=== PATIENT | female | born 1990 | race Hispanic/Latino ===

== ENCOUNTER 2021-03-22 16:38 | Emergency (ER) | payer OTHER ==
[~2021-03-22] VITALS: Ht 167.6 cm; Wt 99.8 kg
[2021-03-22 16:40] VITALS: BP 145/76
[2021-03-22 17:10] LABS: APPEARANCE,URINE Clear (CLEAR); BILIRUBIN,URINE Negative (NEGATIVE); COLOR,URINE Yellow (YELLOW); GLUCOSE, URINE (UA) Negative (NEGATIVE); KETONES,URINE Trace mg/dL (NEGATIVE); LEUKOCYTE ESTERASE ,URINE Trace (NEGATIVE); NITRATE,URINE Negative (NEGATIVE); OCCULT BLOOD,URINE Negative (NEGATIVE); PH,URINE 5.5 (5.0-8.0); PROTEIN,URINE Trace mg/dL (NEGATIVE)
[2021-03-22 17:12] LABS: HCG,QUAL RESULT NEGATIVE (NEGATIVE)
[2021-03-22] MEDS ORDERED: DEXTROSE 50%-WATER 50 ML DISP.SYRIN IV ONE (17:16)
[2021-03-22 17:31] LABS: BACTERIA,URINE Few /HPF (None Seen); RBC,URINE 0-1 /HPF (0-1)
[2021-03-22 17:32] LABS: SQUAMOUS EPITHELIAL CELL,UR Rare /HPF (0-2)
[2021-03-22 17:33] LABS: BASOPHILS % (AUTO) 0.2 % (0.0-5.0); EOSINOPHILS % (AUTO) 0.9 % (0.0-8.0); HEMATOCRIT 43.7 % (36-48); LYMPHOCYTES % (AUTO) 21.4 % (21.0-51.0); MEAN CORPUSCULAR HEMOGLOBIN 29.7 pg (27.0-33.0); MEAN CORPUSCULAR HGB CONC 34.8 g/dL (32.0-36.0); MEAN CORPUSCULAR VOLUME 85.5 fL (79-99); MONOCYTES % (AUTO) 4.7 % (3.0-13.0); NEUTROPHILS % (AUTO) 72.5 % (40.0-77.0); PLATELET COUNT (AUTO) 240 K/uL (130-400); RED BLOOD CELL COUNT(AUTO) 5.11 MIL/uL (4.00-5.50); WHITE BLOOD COUNT (AUTO) 14.3 K/uL (4.8-10.8)
[2021-03-22 17:34] LABS: MUCUS,URINE Rare LPF (None Seen)
[2021-03-22 17:45] LABS: CREATININE 0.8 mg/dL (0.5-1.5); POTASSIUM 3.5 mmol/L (3.5-5.1)
[2021-03-22 17:49] LABS: ALBUMIN 3.9 g/dL (3.5-5.0); BILIRUBIN,TOTAL 0.4 mg/dL (0.2-1.0); CRP QUANTITATIVE 8.1 mg/L (0.00-9.0); TOTAL PROTEIN, SERUM 8.5 g/dL (6.0-8.3)
[2021-03-22] MEDS ORDERED: CEFTRIAXONE 1G VIAL IVP ONE (18:00)
[2021-03-22] MEDS ORDERED: CEPH500B PO (18:14)
[2021-03-22] MEDS ORDERED: FAMC500T8 PO (18:14)
[2021-03-22] MEDS ORDERED: FAMO-136 PO (18:14)
[2021-03-22] MEDS: LIDOCAINE HCL-MPF 1% 2ML VIAL ONE ×2 (18:27→18:39)
[2021-03-22] MEDS ORDERED: 0.9%NACL 50ML 50 ML IV ONE (18:33)
[2021-03-22 18:47] VITALS: BP 139/85
== END 2021-03-22 18:56 | disposition home or self-care (01) ==
LOC: EDH 16:38
DX: G51.0 Bell's palsy (principal); N39.0 Urinary tract infection, site not specified; E11.649 Type 2 diabetes mellitus with hypoglycemia without coma; E78.5 Hyperlipidemia, unspecified; E66.9 Obesity, unspecified; I10 Essential (primary) hypertension; Z79.84 Long term (current) use of oral hypoglycemic drugs; Z68.35 Body mass index [BMI] 35.0-35.9, adult
CPT/HCPCS: 36415; 70450; 71045; 80053; 81001; 81025; 82948; 84484; 85025; 86140; 96374; 96375; J0696; J3490; J7070

== ENCOUNTER 2025-03-05 11:28 | Emergency (ER) | payer OTHER ==
[~2025-03-05] VITALS: Ht 167.6 cm; Wt 79.8 kg
[~2025-03-05 11:28] MED LIST: CEPH500B PO; FAMC500T8 PO; FAMO-136 PO
--- NOTE | 2025-03-05 12:05 | ERN ---
ED Note History of Present Illness Stated Complaint: COUGH, SORE THROAT Chief Complaint: Sore Throat Time Seen by MD: 11:30 Time Seen by Midlevel: 11:30 Dictation: 34-year-old female who presents to the ED for URI symptoms. Patient complaining of cough, congestion, sore throat the past two days. Reports she is from out of town has not followed up with PCP. Denies chest pain, shortness of breath, abdominal pain, fever, chills. No sick contacts Allergies: Coded Allergies: No Known Allergies (Unverified Allergy, Unknown, 03/22/21) Home Meds Active Scripts Famciclovir (Famciclovir) 500 Mg Tablet, 500 MG PO TID for 7 Days, #21 TAB Prov:BRADLY REYNOLDS 03/22/21 Famotidine (Pepcid) 20 Mg Tablet, 20 MG PO BIDAC, #60 TAB Prov:BRADLY REYNOLDS 03/22/21 Cephalexin Monohydrate (Keflex) 500 Mg Cap, 500 MG PO TID for 7 Days, #21 CAP Prov:BRADLY REYNOLDS 03/22/21 Past Medical History Past Medical History: Diabetes-Type II, High Cholesterol, Hypertension Additional Past Medical Hx: Obesity Surgical History: Other Surgical History Other: HEART SURGERY RN Note Reviewed/Agreed w/PFSH: Yes Review of System Dictation Constitutional: Negative for fever,chills, and weight loss Eyes: Negative for injury, pain,redness, and discharge ENT: Negative for injury,pain or swelling Cardiovascular: Negative for chest pain, palpitations, and edema Respiratory: Negative for shortness of breath and wheezing, Abdomen/GI: Negative for abdominal pain, nausea, vomiting, diarrhea, and constipation Back: Negative for injury and pain : Negative for injury, bleeding and discharge MS/Extremity: Negative for injury and deformity Skin: Negative for rash, and discoloration Neuro: Negative for headache, weakness, numbness, tingling, and seizure Psych: Negative for suicide ideation, homicidal ideation, and hallucinations Review of Systems: was completed Initial Vital Sign VS Vital Signs Date Time Temp Pulse Resp B/P (MAP) Pulse Ox O2 Delivery O2 Flow Rate FiO2 03/05/25 11:30 98.2 84 18 133/85 99 03/05/25 11:37 Room Air* 0 21 Physical Exam Dictation General: awake, alert, NAD Head/Face: Normocephalic, atraumatic Eyes: PERRL, EOMI, vision at baseline ENT: oral cavity clear, TMs clear, no signs of infection Neck: Trachea midline, supple, no nuchal rigidity Cardiovascular: RRR, normal S1/S2, No MRGs, no JVD Respiratory: CTAB, no respiratory distress, No rales or wheezes Abdomen: Soft, non-tender, non-distended, normal bowel sounds, no guarding or rebound. Skin: Warm, dry, normal turgor, no rash MS/Extremity: Pulses equal, no cyanosis, neurovascular intact, FROM Neuro: COAx4, GCS 15, strength 5/5, CN 2-12 intact, normal cerebellar exam, normal gait, Psych: Normal behavior, mood, and affect normal Results (Laboratory/Radiology) Laboratory/Radiology Laboratory Tests Test 03/05/25 11:32 Influenza Type A Antigen Negative For Type A Influenza Type B Antigen Negative For Type B SARS-CoV-2 Antigen (Rapid) PRESUMPTIVE NEGATIVE Group A Streptococcus Rapid negative (NEGATIVE) Labs Reviewed?: Yes ED Course ED Course Orders Procedure Category Date Status Time Rapid (Group A Strep) LAB 03/05/25 Complete 11:31 Influenza Type A & B, LAB 03/05/25 Complete Rapid 11:42 Covid19 (Sars Antigen LAB 03/05/25 Complete Rapid) 11:42 Vital Signs Date Time Temp Pulse Resp B/P (MAP) Pulse Ox O2 Delivery O2 Flow Rate FiO2 03/05/25 11:37 98.1 80 16 132/82 99 Room Air* 0 21 03/05/25 11:30 98.2 84 18 133/85 99 Medical Decision Making MDM MDM: Differential diagnosis: Strep pharyngitis, COVID, influenza, viral URI Rationale: Tests considered and ordered secondary to shared decision making include: Previous outside records reviewed: Old ER visits. Medications-Per medication reconciliation Need for hospitalization: Patient does not meet criteria for hospitalization. Need for emergency major/minor surgery: No Patient's prior external medical records from other ER visits were reviewed by me as indicated. Prior testing and results from previous visits were reviewed. Prior tests were taken into account with medical decision making and resource utilization, independent historian/historians were used to obtain complete medical history. I independently interpreted the test that were performed, results were reviewed by me and considered findings on radiology if ordered. Medical management and examination interpretation discussions were had by me with other qualified healthcare professionals as indicated for the patient's care. Patient came in with flu-like symptoms cough, congestion, sore throat for the past few days. Lungs are clear to auscultation. Vital signs are stable, afebrile, nonseptic appearing. Swabs were all negative for COVID, flu, strep. Patient will be discharged home in symptomatic treatment recommended follow up with PCP. Return precautions discussed with patient. Patient verbalized understanding, agreed with plan, and all questions were answered at this time. DX & DISP Disposition: Discharge Departure Impression: Primary Impression: Viral URI Condition: Stable Scripts D-Methorphan Hb/P-Epd HCl/Bpm (Bromfed Dm Cough Syrup) 2 Mg-30 Mg-10 Mg/5 Ml S yrup 10 ML PO Q6HPRN PRN for COUGH, #120 ML Prov: DUYEN REILLY 03/05/25 Additional Instructions: DISCHARGE HOME. REST. FOLLOW UP WITH PRIMARY CARE IN 24 HOURS. RETURN TO THE ER FOR ANY ACUTE CHANGE. PATIENT WAS ALSO ADVISED TO FOLLOW-UP WITH PRIMARY CARE PHYSICIAN IN 1 TO 2 DAYS FOR CONTINUED MONITORING. ALL INSTRUCTIONS WERE GIVEN TO LAYMANS TERM AND PATIENT AGREEABLE TO DISCHARGE AND PROPER FOLLOW-UP. Referrals: CHRIS TORRES MD (PCP) I have reviewed the case, and I agree with, Diagnosis and Plan DUYEN REILLY Mar 05, 2025 12:05
[2025-03-05 12:22] LABS: COVID19 (SARS ANTIGEN RAPID) PRESUMPTIVE NEGATIVE (NEGATIVE); INFLUENZA TYPE A Negative For Type A (NEGATIVE); INFLUENZA TYPE B Negative For Type B (NEGATIVE)
[2025-03-05] MEDS ORDERED: BROM118S48 PO (12:35)
[2025-03-05 12:38] VITALS: BP 128/82; PULSE 76; RESP 16; TEMP 98.1; O2SAT 99
== END 2025-03-05 12:45 | disposition home or self-care (01) ==
LOC: EDH 11:28
DX: J06.9 Acute upper respiratory infection, unspecified (principal); E11.9 Type 2 diabetes mellitus without complications; E66.9 Obesity, unspecified; E78.00 Pure hypercholesterolemia, unspecified; I10 Essential (primary) hypertension; B97.89 Other viral agents as the cause of diseases classified elsewhere; Z79.624 Long term (current) use of inhibitors of nucleotide synthesis; Z20.822 Contact with and (suspected) exposure to COVID-19
CPT/HCPCS: 87426; 87804; 87880; 99283